=== PATIENT | male | born 1995 | race Two or more races ===

== ENCOUNTER 2022-07-14 05:13 | Emergency (ER) | payer OTHER ==
[~2022-07-14] VITALS: Ht 170.2 cm; Wt 68.0 kg
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
[2022-07-14] MEDS ORDERED: LIDOCAINE 1%-EPI 1:100,000 20 ML VIAL ONE (06:17)
[2022-07-14] MEDS ORDERED: TDAP [DIPH/PERTUSSIS/TET] 0.5 ML VIAL IM ONE ×2 (06:30→06:34)
[2022-07-14] MEDS ORDERED: IBUP-1955 PO (07:11)
[2022-07-14 07:17] VITALS: BP 130/77
--- NOTE | 2022-07-14 07:17 | NUR ---
PT IS CLEARED FOR BOOKING
== END 2022-07-14 07:18 | disposition home or self-care (01) ==
LOC: ER 05:21
DX: S01.411A Laceration without foreign body of right cheek and temporomandibular area, initial encounter (principal); S01.81XA Laceration without foreign body of other part of head, initial encounter; S89.91XA Unspecified injury of right lower leg, initial encounter; V49.49XA Driver injured in collision with other motor vehicles in traffic accident, initial encounter; Y93.89 Activity, other specified; Y92.413 State road as the place of occurrence of the external cause; Y99.8 Other external cause status
CPT/HCPCS: 99284; 72125; 71045; 12011; 90471; 90715; 73564; 70450; 70486; J3490